=== PATIENT | male | born 1960 | race Caucasian/White ===

== ENCOUNTER → 2016-04-07 | Outpatient (CLI) | payer OTHER ==
[~2016-04-07] MED LIST: ALLO100T PO; ASPI81TA82 PO; COLE625 PO; DICL50TA3 PO; FISH1000 PO; IBUP600 PO; LOTR5CAP3 PO; TAB-TAB PO
== END ==
LOC: PLAB 08:20
PROVIDERS: ATTEND Family Medicine
DX: R74.8 Abnormal levels of other serum enzymes (principal)
CPT/HCPCS: 80074

== ENCOUNTER → 2016-06-22 | Outpatient (CLI) | payer OTHER ==
[2016-06-22 13:39] LABS: HEMATOCRIT 43.7 % (39.0-51.0); MEAN CELL VOLUME 92.7 FL (80.0-100.0); MEAN CORPUSCULAR HEMOGLOBIN 32.7 PG (27.0-34.0); MEAN CORPUSCULAR HGB CONC 35.3 % (32.0-36.0); PLATELET COUNT 143 TH/MM3 (150-450); RED BLOOD COUNT 4.71 MIL/MM3 (4.50-5.90); RED CELL DISTRIBUTION WIDTH 13.4 % (11.6-17.2); REVIEW FLAG FINAL; WHITE BLOOD COUNT 4.7 TH/MM3 (4.0-11.0)
[2016-06-22 14:05] LABS: ANION GAP 8 MEQ/L (5-15); AST (GOT) 104 U/L (15-37); BLOOD UREA NITROGEN 12 MG/DL (7-18); CHLORIDE 105 MEQ/L (98-107); GLOMERULAR FILTRATION RATE 66 ML/MIN (>89); GLUCOSE,FASTING 123 MG/DL (74-99); POTASSIUM 4.3 MEQ/L (3.5-5.1); SODIUM (NA) 142 MEQ/L (136-145); URIC ACID 8.1 MG/DL (2.6-7.2)
[2016-06-22 14:16] LABS: ALKALINE PHOSPHATASE 46 U/L (45-117); ALT (GPT) 145 U/L (12-78); HDL CHOLESTEROL 64.8 MG/DL (40.0-60.0); LDL CHOLESTEROL 130 MG/DL (0-99); TOTAL BILIRUBIN ADULT 0.5 MG/DL (0.2-1.0)
== END ==
LOC: PLAB 09:14
PROVIDERS: ATTEND Family Medicine
DX: I10 Essential (primary) hypertension (principal); E78.5 Hyperlipidemia, unspecified; M10.9 Gout, unspecified; K76.0 Fatty (change of) liver, not elsewhere classified; R93.8 Abnormal findings on diagnostic imaging of other specified body structures; R10.32 Left lower quadrant pain; R74.8 Abnormal levels of other serum enzymes; Z12.5 Encounter for screening for malignant neoplasm of prostate; Z68.32 Body mass index [BMI] 32.0-32.9, adult
CPT/HCPCS: 80053; 80061; 84153; 84443; 84550; 85027

== ENCOUNTER → 2016-11-05 | Outpatient (CLI) | payer OTHER ==
[2016-11-05 08:35] LABS: AUTOMATED NEUTROPHIL # 3.4 TH/MM3 (1.8-7.7); BASOPHIL % 0.6 % (0.0-2.0); EOSINOPHIL # 0.2 TH/MM3 (0-0.4); EOSINOPHIL % 3.1 % (0.0-4.0); HEMATOCRIT 39.5 % (39.0-51.0); HEMO FLAGS DIFF FINAL; LYMPH % 18.9 % (9.0-44.0); MEAN CORPUSCULAR HEMOGLOBIN 32.2 PG (27.0-34.0); MEAN CORPUSCULAR HGB CONC 33.9 % (32.0-36.0); MONO % 10.5 % (0.0-8.0); NEUT % 66.9 % (16.0-70.0); PLATELET COUNT 111 TH/MM3 (150-450); RED BLOOD COUNT 4.16 MIL/MM3 (4.50-5.90); RED CELL DISTRIBUTION WIDTH 12.5 % (11.6-17.2); WHITE BLOOD COUNT 5.1 TH/MM3 (4.0-11.0)
[2016-11-05 09:41] LABS: ANION GAP 9 MEQ/L (5-15); AST (GOT) 81 U/L (15-37); BLOOD UREA NITROGEN 19 MG/DL (7-18); CHLORIDE 106 MEQ/L (98-107); GLOMERULAR FILTRATION RATE 64 ML/MIN (>89); GLUCOSE,FASTING 115 MG/DL (74-99); POTASSIUM 3.9 MEQ/L (3.5-5.1); SODIUM (NA) 138 MEQ/L (136-145); URIC ACID 4.5 MG/DL (2.6-7.2)
[2016-11-05 09:52] LABS: ALKALINE PHOSPHATASE 47 U/L (45-117); ALT (GPT) 128 U/L (12-78); HDL CHOLESTEROL 50.9 MG/DL (40.0-60.0); LDL CHOLESTEROL 115 MG/DL (0-99); TOTAL BILIRUBIN ADULT 0.5 MG/DL (0.2-1.0)
== END ==
LOC: PLAB 07:50
PROVIDERS: ATTEND Family Medicine
DX: M17.2 Bilateral post-traumatic osteoarthritis of knee (principal); I10 Essential (primary) hypertension; K75.81 Nonalcoholic steatohepatitis (NASH); Z68.30 Body mass index [BMI] 30.0-30.9, adult; M1A.0620 Idiopathic chronic gout, left knee, without tophus (tophi)
CPT/HCPCS: 80053; 80061; 84443; 84550; 85025

== ENCOUNTER → 2016-12-22 | Outpatient (CLI) | payer OTHER ==
[2016-12-22 13:42] LABS: TRANSFERRIN IRON PROFILE 338 MG/DL (200-360)
[2016-12-22 13:51] LABS: FERRITIN 328 NG/ML (26-388)
[2016-12-24 03:51] LABS: IGA SERUM 331 mg/dL (81-463)
[2016-12-24 11:52] LABS: ANA SCREEN NEG (NEG)
[2016-12-26 03:50] LABS: ENDOMYSIAL AB TITER ND (<1:5); MITOCHONDRIAL ABS LESS THAN 20.0 U (<=20.0); TISSUE TRANSGLUTAMINASE AB LESS THAN 1 U/mL (0-4)
== END ==
LOC: PLAB 10:18
DX: R74.8 Abnormal levels of other serum enzymes (principal)
CPT/HCPCS: 80074; 82103; 82390; 82728; 82784; 83516; 83520; 83540; 83550; 84443; 86038; 86255

== ENCOUNTER → 2017-01-27 | Outpatient (CLI) | payer OTHER ==
[2017-01-29 23:52] LABS: (LFP)ALT 111 U/L (9-46); A2 MACROGLOBULIN 254 mg/dL (106-279); FIBROSIS STAGE F2; GGT(LFP) 496 U/L (3-85); HAPTOGLOBIN (LFP) 151 mg/dL (43-212); NECROINFLAMM ACT GRADE A3; REFERENCE ID 1699387; TOTAL BILIRUBIN (LFP) 0.5 mg/dL (0.2-1.2)
== END ==
LOC: PLAB 07:24
DX: R74.8 Abnormal levels of other serum enzymes (principal); R16.0 Hepatomegaly, not elsewhere classified; K76.0 Fatty (change of) liver, not elsewhere classified
CPT/HCPCS: 36415; 82172; 82247; 82977; 83010; 83883; 84460

== ENCOUNTER → 2017-03-21 | Outpatient (CLI) | payer OTHER ==
[2017-03-21 09:44] LABS: AUTOMATED NEUTROPHIL # 2.4 TH/MM3 (1.8-7.7); EOSINOPHIL # 0.2 TH/MM3 (0-0.4); EOSINOPHIL % 4.7 % (0.0-4.0); HEMATOCRIT 40.6 % (39.0-51.0); HEMOGLOBIN 14.3 GM/DL (13.0-17.0); MEAN CELL VOLUME 95.1 FL (80.0-100.0); MEAN CORPUSCULAR HEMOGLOBIN 33.3 PG (27.0-34.0); MEAN CORPUSCULAR HGB CONC 35.1 % (32.0-36.0); MEAN PLATELET VOLUME 7.2 FL (7.0-11.0); MONO % 8.4 % (0.0-8.0); MONOCYTE # 0.3 TH/MM3 (0-0.9); NEUT % 59.9 % (16.0-70.0); PLATELET COUNT 118 TH/MM3 (150-450); RED BLOOD COUNT 4.27 MIL/MM3 (4.50-5.90); RED CELL DISTRIBUTION WIDTH 13.3 % (11.6-17.2); WHITE BLOOD COUNT 3.9 TH/MM3 (4.0-11.0)
[2017-03-21 10:04] LABS: ALBUMIN 3.7 GM/DL (3.4-5.0); AST (GOT) 131 U/L (15-37); BICARBONATE 25.9 MEQ/L (21.0-32.0); BLOOD UREA NITROGEN 14 MG/DL (7-18); CALCIUM 9.3 MG/DL (8.5-10.1); CHLORIDE 106 MEQ/L (98-107); CREATININE 1.14 MG/DL (0.60-1.30); GLOMERULAR FILTRATION RATE 66 ML/MIN (>89); GLUCOSE,FASTING 136 MG/DL (74-99); SODIUM (NA) 141 MEQ/L (136-145)
[2017-03-21 10:08] LABS: ALKALINE PHOSPHATASE 57 U/L (45-117); ALT (GPT) 150 U/L (12-78); TOTAL BILIRUBIN ADULT 0.4 MG/DL (0.2-1.0); TOTAL PROTEIN 7.5 GM/DL (6.4-8.2)
[2017-03-21 10:13] LABS: CHOLESTEROL/ HDL RATIO 5.47 RATIO; HDL CHOLESTEROL 45.7 MG/DL (40.0-60.0)
== END ==
LOC: PLAB 07:32
PROVIDERS: ATTEND Family Medicine
DX: M17.2 Bilateral post-traumatic osteoarthritis of knee (principal); I10 Essential (primary) hypertension; K75.81 Nonalcoholic steatohepatitis (NASH); M1A.0620 Idiopathic chronic gout, left knee, without tophus (tophi); Z68.30 Body mass index [BMI] 30.0-30.9, adult
CPT/HCPCS: 36415; 80053; 80061; 84443; 84550; 85025

== ENCOUNTER → 2017-07-06 | Outpatient (CLI) | payer OTHER ==
[2017-07-06 13:44] LABS: AUTOMATED NEUTROPHIL # 2.9 TH/MM3 (1.8-7.7); BASOPHIL % 0.7 % (0.0-2.0); EOSINOPHIL # 0.1 TH/MM3 (0-0.4); EOSINOPHIL % 2.3 % (0.0-4.0); HEMATOCRIT 43.1 % (39.0-51.0); HEMOGLOBIN 15.1 GM/DL (13.0-17.0); LYMPH % 19.1 % (9.0-44.0); LYMPHOCYTE # 0.8 TH/MM3 (1.0-4.8); MEAN CELL VOLUME 94.6 FL (80.0-100.0); MEAN CORPUSCULAR HGB CONC 34.9 % (32.0-36.0); MEAN PLATELET VOLUME 7.5 FL (7.0-11.0); MONO % 10.1 % (0.0-8.0); MONOCYTE # 0.4 TH/MM3 (0-0.9); NEUT % 67.8 % (16.0-70.0); PLATELET COUNT 124 TH/MM3 (150-450); RED BLOOD COUNT 4.56 MIL/MM3 (4.50-5.90); RED CELL DISTRIBUTION WIDTH 13.2 % (11.6-17.2); WHITE BLOOD COUNT 4.3 TH/MM3 (4.0-11.0)
[2017-07-06 14:14] LABS: ALBUMIN 4.1 GM/DL (3.4-5.0); AST (GOT) 174 U/L (15-37); BICARBONATE 24.4 MEQ/L (21.0-32.0); BLOOD UREA NITROGEN 13 MG/DL (7-18); CALCIUM 9.3 MG/DL (8.5-10.1); CHLORIDE 103 MEQ/L (98-107); CHOLESTEROL 231 MG/DL (120-200); CREATININE 1.43 MG/DL (0.60-1.30); GLOMERULAR FILTRATION RATE 51 ML/MIN (>89); GLUCOSE,FASTING 138 MG/DL (74-99); SODIUM (NA) 138 MEQ/L (136-145); TRIGLYCERIDES 572 MG/DL (42-150)
[2017-07-06 14:39] LABS: ALKALINE PHOSPHATASE 62 U/L (45-117); ALT (GPT) 157 U/L (12-78); CHOLESTEROL/ HDL RATIO 6.39 RATIO; FREE T3 2.33 PG/ML (2.18-3.98); FREE T4 0.88 NG/DL (0.76-1.46); HDL CHOLESTEROL 36.1 MG/DL (40.0-60.0); TOTAL BILIRUBIN ADULT 0.6 MG/DL (0.2-1.0)
[2017-07-06 17:00] LABS: HEMOGLOBIN A1C 5.9 % (4.3-6.0)
[2017-07-08 15:53] LABS: CARDIO CRP 4.4 mg/L
[2017-07-08 23:52] LABS: PROGESTERONE LESS THAN 0.1 ng/mL (< OR = 0.2)
[2017-07-09 03:50] LABS: DEHYDROEPIANDROSTERONE SULFATE 77 mcg/dL (38-313)
[2017-07-12 16:41] LABS: BIOAVAILABLE TESTOSTERONE 88 ng/dL (50-190); DIHYDROTESTOSTERONE 217 pg/mL (112-955); ESTRADIOL 24 pg/mL (10-40); FREE TESTOSTERONE 10.2 ng/dL (3.87-14.7); TOTAL TESTOSTERONE 351 ng/dL (240-950)
== END ==
LOC: PLAB 08:59
DX: G47.00 Insomnia, unspecified (principal); E78.5 Hyperlipidemia, unspecified; I10 Essential (primary) hypertension; M10.9 Gout, unspecified; Z12.5 Encounter for screening for malignant neoplasm of prostate
CPT/HCPCS: 36415; 80053; 80061; 80327; 82306; 82378; 82607; 82627; 82670; 83036; 83090; 83525; 84144; 84153; 84305; 84403; 84410; 84439; 84443; 84481; 84550; 85025; 86141; G0480

== ENCOUNTER → 2017-08-24 | Outpatient (CLI) | payer OTHER ==
[2017-08-24 14:48] LABS: FREE T4 0.87 NG/DL (0.76-1.46)
[2017-08-26 23:54] LABS: THYROID PEROX AB (MICROSOMAL) 1 IU/mL (<9)
[2017-08-27 03:52] LABS: THYROGLOB ABS LESS THAN 1 IU/mL (< OR = 1)
== END ==
LOC: PLAB 11:18
PROVIDERS: ATTEND Internal Medicine Endocrinology, Diabetes & Metabolism
DX: E04.1 Nontoxic single thyroid nodule (principal)
CPT/HCPCS: 36415; 84432; 84439; 84443; 86376; 86800